=== PATIENT | female | born 1930 | race American Indian/Alaskan Native ===

== ENCOUNTER 2019-01-06 11:15 | Day surgery (SDC) | payer MEDICARE ==
[~2019-01-06 11:15] MED LIST: IOPIDINE ONE; MYDRIACYL ONE; NEOFRIN ONE
[2019-01-06] MEDS ORDERED: IOPIDINE OS ONE (11:45)
[2019-01-06] MEDS ORDERED: NEOFRIN OS ONE (11:45)
[2019-01-06] MEDS ORDERED: MYDRIACYL OS ONE (11:45)
[2019-01-06 13:58] VITALS: BP 143/57
== END 2019-01-06 13:02 | disposition home or self-care (01) ==
LOC: OR 11:15 → EDBD 20:15
PROVIDERS: ATTEND Specialist
DX: H26.492 Other secondary cataract, left eye (principal); I10 Essential (primary) hypertension; I25.10 Atherosclerotic heart disease of native coronary artery without angina pectoris; Z88.0 Allergy status to penicillin; Z87.891 Personal history of nicotine dependence; Z98.42 Cataract extraction status, left eye; Z98.41 Cataract extraction status, right eye; Z90.710 Acquired absence of both cervix and uterus; Z98.890 Other specified postprocedural states

== ENCOUNTER 2019-01-13 10:57 | Day surgery (SDC) | payer MEDICARE ==
[~2019-01-13 10:57] MED LIST changes: +DEXMEDETOMIDINE IV ONE; +MARCAINE 0.5% INFILTRATI ONE
[2019-01-13] MEDS ORDERED: IOPIDINE OD ONE (11:21)
[2019-01-13] MEDS ORDERED: MYDRIACYL OD ONE (11:22)
[2019-01-13] MEDS ORDERED: NEOFRIN OD ONE (11:23)
[2019-01-13 11:43] VITALS: BP 142/59
== END 2019-01-13 12:47 | disposition home or self-care (01) ==
LOC: EDBD → OR 10:57
PROVIDERS: ATTEND Specialist
DX: H26.491 Other secondary cataract, right eye (principal); I25.10 Atherosclerotic heart disease of native coronary artery without angina pectoris; I10 Essential (primary) hypertension; K21.9 Gastro-esophageal reflux disease without esophagitis; Z88.0 Allergy status to penicillin; Z79.82 Long term (current) use of aspirin; Z79.899 Other long term (current) drug therapy; Z87.891 Personal history of nicotine dependence; Z98.41 Cataract extraction status, right eye; Z98.42 Cataract extraction status, left eye; Z98.890 Other specified postprocedural states
CPT/HCPCS: 66821; J3490